=== PATIENT | female | born 1945 | race Caucasian/White ===

== ENCOUNTER → 2019-12-26 | Outpatient (CLI) | payer OTHER ==
[~2019-12-26] MED LIST: ALBU90OI61 INH; FLUSAL2505 INH; HYDACE5325 PO; HYDMOR2; HYDSUL200 PO; OXYGEN INH
[2019-12-31 13:09] LABS: M-SPIKE, % Not Observed % (Not Observed); PROTEIN,TOTAL,URINE 4.2 mg/dL (Not Estab.)
== END | disposition home or self-care (01) ==
LOC: LAB 14:57 → LAB SHORT 14:57 → LAB FUT 09-11 07:25
PROVIDERS: Internal Medicine
DX: E87.8 Other disorders of electrolyte and fluid balance, not elsewhere classified (principal)
CPT/HCPCS: 81050; 84156; 84166